=== PATIENT | male | born 1970 | race Caucasian/White ===

== ENCOUNTER 2019-12-18 06:58 | Day surgery (SDC) | payer OTHER ==
[~2019-12-18 06:58] MED LIST: Lactated Ringers 1,000 ML IV SCH; Lidocaine 1%/Sod Bicarbonate in NS 8.4% 1 ML Syringe IDERM PRN; Sodium Chloride 0.9% 10 ML Syringe FLUSH PRN
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
[2019-12-18] MEDS ORDERED: Propofol 200 MG/20 ML SDV ONE ×3 (08:38→10:02)
[2019-12-18] MEDS ORDERED: Lidocaine 1% 4 ML ONE ×3 (08:38→10:03)
[2019-12-18] MEDS ORDERED: fentaNYL 100 MCG/2 ML SDV ONE ×2 (08:38→09:54)
--- NOTE | 2019-12-18 10:38 | PCM.PRNOTE ---
- Free Text/Narrative Note: Date: 12/18/2019 Procedure: screening colonoscopy Endoscopist: Dann Perez MD Findings: Very challenging to navigate sigmoid colon. Ileocecal valve visualized. Prep was excellent. Several polyps identified; none appeared worrisome for malignancy. Detailed Report: The patient was taken to the endoscopy suite and placed in left lateral decubitus position. Time out was performed and monitored anesthesia care was initiated. The anus appeared normal. Digital rectal exam was unremarkable; hypertrophied anal papilla appreciated, prostate felt normal. The lubricated colonoscope was then inserted and advanced all the way to the cecum. Navigating the sigmoid colon was very challenging and took a while. The ileocecal valve was visualized. The prep was noted to be excellent. On slow withdrawal of the scope, mucosal surfaces were carefully inspected. Several polyps were identified along the sigmoid colon and rectum, and were biopsied either with forceps or snare and the bases cauterized. A total of six specimens were obtained. No significant diverticular or hemorrhoidal disease was appreciated. The patient tolerated the procedure well. Dann Perez MD General Surgery
--- NOTE | 2019-12-18 10:48 | PCM48HPAN ---
Post Anesthesia Note - EVALUATION WITHIN 48HRS OF ANESTHETIC Vital Signs in Normal Range: Yes Patient Participated in Evaluation: Yes Respiratory Function Stable: Yes Airway Patent: Yes Cardiovascular Function Stable: Yes Hydration Status Stable: Yes Pain Control Satisfactory: Yes Nausea and Vomiting Control Satisfactory: Yes Mental Status Recovered: Yes Vital Signs: Last Vital Signs Temp 36.7 C 12/18/19 07:10 Pulse 86 12/18/19 07:10 Resp 16 12/18/19 07:10 BP 140/87 12/18/19 07:10 Pulse Ox 96 12/18/19 07:10 - COMMENTS/OBSERVATIONS Free Text/Narrative:: 1034 127/97 74 16 92% 97.1F
[2019-12-18] MEDS ORDERED: Simethicone 80 MG Tab.Chew PO SCH (11:26)
[2019-12-18 12:29] VITALS: BP 137/88; PULSE 74
--- NOTE | 2019-12-18 13:07 | CR ---
Abdomen: Upright view of the abdomen was obtained. Increased gas within small bowel and colon is seen. Findings compatible with recent colonoscopy. No free air is seen. Thick parenchymal density noted within the left lung base most likely due to atelectasis unless patient has infectious symptoms. Bony structures are unremarkable. Impression: 1. Increased gas within small bowel and colon compatible with recent colonoscopy. 2. Increased density within left lung base most likely due to thick area of atelectasis unless patient has infectious symptoms of aspiration pneumonia or regular pneumonia. Diagnostic code #3 Study was dictated in [place] Standard Time
== END 2019-12-18 13:55 | disposition home or self-care (01) ==
LOC: JD.SDS 06:58
PROVIDERS: ATTEND Surgery
DX: Z12.11 Encounter for screening for malignant neoplasm of colon (principal); D12.5 Benign neoplasm of sigmoid colon; K62.1 Rectal polyp; K21.9 Gastro-esophageal reflux disease without esophagitis; E78.5 Hyperlipidemia, unspecified; G47.33 Obstructive sleep apnea (adult) (pediatric); Z99.89 Dependence on other enabling machines and devices; Z79.899 Other long term (current) drug therapy
CPT/HCPCS: 45380; 45385; 74018; A9270; J2001; J2704; J3010; J7120; 00812; 88305

== ENCOUNTER 2020-07-18 14:38 | Emergency (ER) | payer OTHER ==
[2020-07-18] MEDS ORDERED: Sodium Chloride 0.9% 10 ML Syringe FLUSH PRN (15:09)
[2020-07-18] MEDS ORDERED: Alum Hydrox/Mag Hydrox/Simeth 30 ML, Lidocaine 2% 15 ML PO ONE ×2 (15:09)
[2020-07-18] MEDS ORDERED: Aspirin 81 MG Tab.Chew PO ONE (15:09)
--- NOTE | 2020-07-18 15:16 | EDM.PDOC ---
ED HPI GENERAL MEDICAL PROBLEM - General Chief Complaint: Chest Pain Stated Complaint: ABNORMAL EKG Time Seen by Provider: 07/18/20 14:54 Source of Information: Reports: Patient History Limitations: Reports: No Limitations - History of Present Illness INITIAL COMMENTS - FREE TEXT/NARRATIVE: Patient is a 50-year-old male with history of acid reflux and hypercholesterolemia. Presents to the ED today after a 2-day history of burning-like sensation to the lower sternal border. Pain is rated at 4 out of 10 wax and wanes in intensity with no worsening with palpation or exertion. There is no shortness of breath, diaphoresis, fever chills, cough, or abdominal pain associated with this. He does have some pain to the mid thoracic back which is unusual for the patient. No dizziness or sense of acid. He was seen today by his PCP for his annual physical. Patient suspects this is more likely acid reflux but was sent to the ED for further evaluation. There is a family history of first-degree relative with heart disease. His dad had onset of heart disease at the age of 40. Patient continues to smoke approximate 1 pack/day for 30 years. There is no history of diabetes, hypertension, PE/DVT, or pancreatitis. Patient denies any dark tarry stools, bloody stools, excessive ibuprofen use, diarrhea, constipation, and/or any additional complaints. Upper Mid-Sternal Chest Pain Score (Numeric/FACES): 6 - Related Data Allergies Allergy/AdvReac Type Severity Reaction Status Date / Time No Known Allergies Allergy Verified 07/18/20 14:49 Home Meds: Home Meds Cholecalciferol (Vitamin D3) [Vitamin D3] 1,000 unit PO DAILY 12/18/19 [History] Fish Oil/[place]-3 Fatty Acids [Fish Oil 1,000 MG] 2 cap PO DAILY 12/18/19 [History] Ibuprofen 600 mg PO ASDIRECTED PRN 12/18/19 [History] Nortriptyline 50 mg PO BEDTIME 12/18/19 [History] Omeprazole Magnesium [Prilosec Otc] 20 mg PO BID 12/18/19 [History] atorvaSTATin [Lipitor] 40 mg PO DAILY 12/18/19 [History] Past Medical History Cardiovascular History: Reports: High Cholesterol Respiratory History: Reports: Sleep Apnea Gastrointestinal History: Reports: GERD Musculoskeletal History: Reports: Back Pain, Chronic Psychiatric History: Reports: PTSD, Other (See Below) Other Psychiatric History: INSOMNIA Dermatologic History: Reports: Eczema - Past Surgical History Musculoskeletal Surgical History: Reports: Arthroscopic Knee Social & Family History - Tobacco Use Smoking Status *Q: Current Every Day Smoker Years of Tobacco use: 30 Packs/Tins Daily: 0.5 - Caffeine Use Caffeine Use: Reports: None - Recreational Drug Use Recreational Drug Use: No ED ROS GENERAL - Review of Systems Review Of Systems: Comprehensive ROS is negative, except as noted in HPI. ED EXAM, GENERAL - Physical Exam Exam: See Below Exam Limited By: No Limitations General Appearance: Alert, WD/WN, No Apparent Distress Eye Exam: Bilateral Eye: Normal Inspection Ears: Hearing Grossly Normal Nose: Normal Inspection Throat/Mouth: Normal Inspection, Normal Oropharynx, Normal Voice, No Airway Compromise Head: Atraumatic, Normocephalic Neck: Normal Inspection, Supple Respiratory/Chest: No Respiratory Distress, Lungs Clear, Normal Breath Sounds, No Accessory Muscle Use, Chest Non-Tender Cardiovascular: Normal Peripheral Pulses, Regular Rate, Rhythm, No Murmur Peripheral Pulses: 2+: Radial (L), Radial (R), Posterior Tibial (L), Posterior Tibial (R) GI/Abdominal: Normal Bowel Sounds, Soft, Non-Tender, No Organomegaly, No Distention Back Exam: Normal Inspection, Full Range of Motion. No: CVA Tenderness (L), CVA Tenderness (R), Decreased Range of Motion, Paraspinal Tenderness, Vertebral Tenderness Extremities: Normal Inspection, Normal Range of Motion, Non-Tender, No Pedal Edema Neurological: Alert, Oriented, CN II-XII Intact, Normal Cognition, No Motor/Sensory Deficits Psychiatric: Normal Affect, Normal Mood Skin Exam: Warm, Dry, Intact, Normal Color Course - Vital Signs Last Recorded V/S: Last Vital Signs Temp 98.3 F 07/18/20 14:45 Pulse 79 07/18/20 18:38 Resp 18 07/18/20 18:38 BP 132/77 07/18/20 18:38 Pulse Ox 97 07/18/20 18:38 - Orders/Labs/Meds Orders: Active Orders 24 hr Category Date Time Status Chest 1V Frontal [CR] Stat Exams 07/18/20 14:55 Taken Peripheral IV Insertion Adult [OM.PC] Routine Oth 07/18/20 15:09 Ordered EKG 12 Lead [EK] Stat Ther 07/18/20 15:49 Ordered Labs: Laboratory Tests 07/18/20 07/18/20 07/18/20 Range/Units 15:00 15:00 15:00 WBC 9.83 H (4.23-9.07) K/mm3 RBC 5.54 (4.63-6.08) M/mm3 Hgb 15.8 (13.7-17.5) gm/dl Hct 47.9 (40.1-51.0) % MCV 86.5 (79.0-92.2) fl MCH 28.5 (25.7-32.2) pg MCHC 33.0 (32.2-35.5) g/dl RDW Std Deviation 47.1 H (35.1-43.9) fL Plt Count 272 (163-337) K/mm3 MPV 11.0 (9.4-12.3) fl Neutrophils % (Manual) 52 (40-60) % Band Neutrophils % 1 (0-10) % Lymphocytes % (Manual) 31 (20-40) % Atypical Lymphs % 4 % Monocytes % (Manual) 10 (2-10) % Eosinophils % (Manual) 2 (0.8-7.0) % Basophils % (Manual) 0 L (0.2-1.2) Platelet Estimate Adequate RBC Morph Comment Normal PT 10.5 (9.7-11.7) SECONDS INR 0.98 APTT 28 (22-31) SECONDS Sodium 139 (136-145) mEq/L Potassium 3.9 (3.5-5.1) mEq/L Chloride 101 (98-107) mEq/L Carbon Dioxide 29 (21-32) mEq/L Anion Gap 12.9 (5-15) BUN 17 (7-18) mg/dL Creatinine 1.3 (0.7-1.3) mg/dL Est Cr Clr Drug Dosing 71.60 mL/min Estimated GFR (MDRD) 58 (>60) mL/min BUN/Creatinine Ratio 13.1 L (14-18) Glucose 90 (74-106) mg/dL Calcium 9.2 (8.5-10.1) mg/dL Total Bilirubin 0.7 (0.2-1.0) mg/dL AST 39 H (15-37) U/L ALT 56 (16-63) U/L Alkaline Phosphatase 51 (46-116) U/L Troponin I (0.00-0.056) ng/mL C-Reactive Protein 0.8 (<1.0) mg/dL Total Protein 8.1 (6.4-8.2) g/dl Albumin 4.3 (3.4-5.0) g/dl Globulin 3.8 gm/dL Albumin/Globulin Ratio 1.1 (1-2) Lipase (73-393) U/L SARS-CoV-2 RNA (SHERLYN) (NEGATIVE) 07/18/20 07/18/20 Range/Units 15:00 15:59 WBC (4.23-9.07) K/mm3 RBC (4.63-6.08) M/mm3 Hgb (13.7-17.5) gm/dl Hct (40.1-51.0) % MCV (79.0-92.2) fl MCH (25.7-32.2) pg MCHC (32.2-35.5) g/dl RDW Std Deviation (35.1-43.9) fL Plt Count (163-337) K/mm3 MPV (9.4-12.3) fl Neutrophils % (Manual) (40-60) % Band Neutrophils % (0-10) % Lymphocytes % (Manual) (20-40) % Atypical Lymphs % % Monocytes % (Manual) (2-10) % Eosinophils % (Manual) (0.8-7.0) % Basophils % (Manual) (0.2-1.2) Platelet Estimate RBC Morph Comment PT (9.7-11.7) SECONDS INR APTT (22-31) SECONDS Sodium (136-145) mEq/L Potassium (3.5-5.1) mEq/L Chloride (98-107) mEq/L Carbon Dioxide (21-32) mEq/L Anion Gap (5-15) BUN (7-18) mg/dL Creatinine (0.7-1.3) mg/dL Est Cr Clr Drug Dosing mL/min Estimated GFR (MDRD) (>60) mL/min BUN/Creatinine Ratio (14-18) Glucose (74-106) mg/dL Calcium (8.5-10.1) mg/dL Total Bilirubin (0.2-1.0) mg/dL AST (15-37) U/L ALT (16-63) U/L Alkaline Phosphatase (46-116) U/L Troponin I 2.813 H* (0.00-0.056) ng/mL C-Reactive Protein (<1.0) mg/dL Total Protein (6.4-8.2) g/dl Albumin (3.4-5.0) g/dl Globulin gm/dL Albumin/Globulin Ratio (1-2) Lipase 127 (73-393) U/L SARS-CoV-2 RNA (SHERLYN) Negative (NEGATIVE) Meds: Medications Discontinued Medications Generic Name Dose Route Start Last Admin Trade Name Freq PRN Reason Stop Dose Admin Aspirin 324 mg 07/18/20 15:09 07/18/20 15:17 Aspirin PO 07/18/20 15:10 324 mg ONETIME ONE Administration Al Hydroxide/Mg Hydroxide 30 0 ml 07/18/20 15:09 07/18/20 15:17 ml/ Lidocaine HCl 15 ml PO 07/18/20 15:10 45 ml ONETIME ONE Administration Fentanyl 50 mcg 07/18/20 17:06 07/18/20 18:34 Sublimaze IVPUSH 07/18/20 17:07 Not Given ONETIME ONE Heparin Sodium (Porcine) 4,000 units 07/18/20 16:00 07/18/20 16:14 Heparin Sodium IVPUSH 07/18/20 16:01 4,000 units ONETIME ONE Administration Sodium Chloride Confirm 07/18/20 15:51 07/18/20 16:04 Normal Saline Administered 07/18/20 15:52 Not Given Dose 1,000 mls @ as directed .ROUTE .STK-MED ONE Sodium Chloride 1,000 mls @ 125 mls/hr 07/18/20 16:00 07/18/20 15:50 Normal Saline IV 125 mls/hr ASDIRECTED SAMANTHA Administration Heparin Sodium/Dextrose 25,000 units in 500 mls @ 25.038 mls/hr 07/18/20 16:00 07/18/20 16:14 Heparin 25,000 Units In D5w 500 Ml IV 9.59 units/kg/hr TITRATE SAMANTHA 20 mls/hr Administration Protocol 12 UNITS/KG/HR Nitroglycerin/Dextrose 25 mg in 250 mls @ 3 mls/hr 07/18/20 17:15 07/18/20 17:34 Nitroglycerin 25 Mg/D5w 250 Ml IV 5 mcg/min TITRATE SAMANTHA 3 mls/hr Administration Protocol 5 MCG/MIN Nitroglycerin 0.4 mg 07/18/20 15:45 07/18/20 16:03 Nitrostat SL 07/18/20 15:46 0.4 mg ONETIME ONE Administration Nitroglycerin 0.4 mg 07/18/20 16:44 07/18/20 16:45 Nitrostat SL 07/18/20 16:45 0.4 mg ONETIME ONE Administration Ondansetron HCl 4 mg 07/18/20 17:06 07/18/20 17:32 Zofran IVPUSH 07/18/20 17:07 4 mg ONETIME ONE Administration Sodium Chloride 10 ml 07/18/20 15:09 07/18/20 15:17 Saline Flush FLUSH 10 ml ASDIRECTED PRN Administration Keep Vein Open - Re-Assessments/Exams Free Text/Narrative Re-Assessment/Exam: IV Established. Ordered ASA 324 mg x 1. GI cocktail. Lab studies to be obtained include a CBC, can 14, coag studies, lipase, troponin, CRP and also chest x-ray 1 view. EKG sinus rhythm with left axis deviation. T wave inversions in leads III and aVF. Very slight ST depression in leads III and aVF. Suggesting ischemia. Suspect enzymes should be positive for patient's been having had consistent pain for 2 days. 1543 opponent has come back at 2.813. She had no relief with the GI cocktail. Back pain has resolved. Blood pressure 127/98, heart rate 76, O2 sats 97% on room air, respiratory rate 16. Ordered normal saline 125 mL/h with nitro sublingual x1. Second EKG will be obtained. Second EKG sinus rhythm with no acute ST changes. No significant changes from previous EKG. Ordered heparin 4000 units IV push with heparin drip. 1642 Per nursing patient stated pain 3/10 after nitro. Vitals remain stable. [address] Marshall he has requested obtaining right-sided twelve-lead and also posterior. If patient continues to have pain after nitro he may need to be cath. In addition agreed after administration of nitro if no relief start nitro drip and titrate up. He will need to be triaged in the ED. Discussed patient with Dr. Villagomez ER physician and he has accepted the patient. Per Dr. Lopez the right-sided twelve-lead was completely normal. In addition the posterior leads were within normal limits as well. 1718 Nursing staff states patient's pain is a 2 out of 10. I had already ordered a fentanyl 50 mcg and nitro drip. We are unable to arrange ground transport. [place] fix wing is available. We will have the patient transferred via fixed wing to [facility]. Ordered fentanyl 50 mcg IV and nitro drip. Prior to discharge patient's chest discomfort was still a 2 out of 10 on nitro drip. Vital signs remained stable. Departure - Departure Time of Disposition: 17:10 Disposition: DC/Tfer to Acute Hospital 02 Reason for Transfer *Q: Other (PCI would be indicated if pain persists.) Condition: Fair Clinical Impression: NSTEMI (non-ST elevated myocardial infarction) Referrals: Jeanette Bray MD [Primary Care Provider] - Sepsis Event Note (ED) - Evaluation Sepsis Screening Result: No Definite Risk - My Orders Last 24 Hours: My Active Orders 07/18/20 14:55 Chest 1V Frontal [CR] Stat 07/18/20 15:09 Peripheral IV Insertion Adult [OM.PC] Routine 07/18/20 15:49 EKG 12 Lead [EK] Stat - Assessment/Plan Last 24 Hours: My Active Orders 07/18/20 14:55 Chest 1V Frontal [CR] Stat 07/18/20 15:09 Peripheral IV Insertion Adult [OM.PC] Routine 07/18/20 15:49 EKG 12 Lead [EK] Stat
[2020-07-18] MEDS ORDERED: Nitroglycerin 0.4 MG Tab.SL SL ONE ×2 (15:45→16:44)
[2020-07-18] MEDS ORDERED: Sodium Chloride 0.9% 1,000 ML ONE (15:51)
[2020-07-18] MEDS ORDERED: Heparin Sodium 5,000 Units/ML Vial IVPUSH ONE (16:00)
[2020-07-18] MEDS ORDERED: Heparin Sodium/D5W 25,000 UNITS/500 ML BAG IV SCH (16:00)
[2020-07-18] MEDS ORDERED: Sodium Chloride 0.9% 1,000 ML IV SCH (16:00)
[2020-07-18] MEDS ORDERED: Ondansetron 4 MG/2 ML SDV IVPUSH ONE (17:06)
[2020-07-18] MEDS ORDERED: fentaNYL 100 MCG/2 ML SDV IVPUSH ONE (17:06)
[2020-07-18] MEDS ORDERED: Nitroglycerin/D5W 25 MG/250 ML BOTTLE IV SCH (17:15)
[2020-07-18 18:44] VITALS: BP 132/77; PULSE 79
== END 2020-07-18 18:04 ==
LOC: JD.ED 14:38
DX: I21.4 Non-ST elevation (NSTEMI) myocardial infarction (principal); K21.9 Gastro-esophageal reflux disease without esophagitis; F17.210 Nicotine dependence, cigarettes, uncomplicated; E78.00 Pure hypercholesterolemia, unspecified; Z20.828 Contact with and (suspected) exposure to other viral communicable diseases; Z79.899 Other long term (current) drug therapy
CPT/HCPCS: 36415; 71045; 80053; 83690; 84484; 85007; 85027; 85610; 85730; 86140; 87635; 93005; 96365; 96366; 96368; 96375; 99285; A9270; J1644; J2405; J3490; J7030; 93010; U0002

== ENCOUNTER 2021-04-18 09:19 | Emergency (ER) | payer OTHER ==
[2021-04-18 09:30] VITALS: BP 142/83; PULSE 61
[2021-04-18] MEDS ORDERED: Sodium Chloride 0.9% 10 ML Syringe FLUSH PRN (10:02)
[2021-04-18] MEDS ORDERED: Aspirin 81 MG Tab.Chew PO ONE (10:02)
--- NOTE | 2021-04-18 11:21 | EDM.PDOC ---
ED HPI GENERAL MEDICAL PROBLEM - General Chief Complaint: Chest Pain Stated Complaint: CHEST PAIN Time Seen by Provider: 04/18/21 09:43 Source of Information: Reports: Patient, RN Notes Reviewed - History of Present Illness INITIAL COMMENTS - FREE TEXT/NARRATIVE: The patient presents with chest pain. This started yesterday. He said it was on the left and now it has gone to the right. He has no fever, chills, cough, shortness of breath, abdominal pain, nausea or vomiting. He has a history of AR with stents. He does not smoke. Onset: Gradual Duration: Day(s): (Yesterday) Location: Reports: Chest Severity: Mild Improves with: Reports: None Worsens with: Reports: None Associated Symptoms: Reports: Chest Pain. Denies: Cough, Fever/Chills, Headaches, Nausea/Vomiting, Shortness of Breath Right Chest Pain Score (Numeric/FACES): 6 - Related Data Allergies Allergy/AdvReac Type Severity Reaction Status Date / Time No Known Allergies Allergy Verified 04/18/21 09:30 Home Meds: Home Meds Cholecalciferol (Vitamin D3) [Vitamin D3] 2,000 unit PO DAILY 12/18/19 [History] Fish Oil/[place]-3 Fatty Acids [Fish Oil 1,000 MG] 2 cap PO DAILY 12/18/19 [History] Ibuprofen 800 mg PO TID PRN 12/18/19 [History] atorvaSTATin [Lipitor] 40 mg PO BEDTIME 12/18/19 [History] Aspirin [Aspirin EC] 81 mg PO DAILY 04/18/21 [History] Clopidogrel Bisulfate [Plavix] 75 mg PO DAILY 04/18/21 [History] Escitalopram Oxalate [Lexapro] 20 mg PO DAILY 04/18/21 [History] Gabapentin [Neurontin] 300 mg PO BID 04/18/21 [History] Nicotine Polacrilex [Nicotine Gum] 4 mg BC QID PRN 04/18/21 [History] Nitroglycerin 0.4 mg SL ASDIRECTED PRN 04/18/21 [History] Pantoprazole Sodium [Protonix] 40 mg PO DAILY 04/18/21 [History] traZODone 25 mg PO BEDTIME 04/18/21 [History] Past Medical History HEENT History: Reports: Impaired Vision Cardiovascular History: Reports: High Cholesterol, [place] Respiratory History: Reports: Sleep Apnea Gastrointestinal History: Reports: GERD Musculoskeletal History: Reports: Back Pain, Chronic Psychiatric History: Reports: PTSD, Other (See Below) Other Psychiatric History: INSOMNIA Hematologic History: Reports: Anticoagulation Therapy Dermatologic History: Reports: Eczema - Past Surgical History Cardiovascular Surgical History: Reports: Coronary Artery Stent Musculoskeletal Surgical History: Reports: Arthroscopic Knee Social & Family History - Tobacco Use Tobacco Use Status *Q: Current Every Day Tobacco User Years of Tobacco use: 30 Packs/Tins Daily: 0.5 - Caffeine Use Caffeine Use: Reports: Soda - Recreational Drug Use Recreational Drug Use: No ED ROS GENERAL - Review of Systems Review Of Systems: See Below Constitutional: Reports: No Symptoms HEENT: Reports: No Symptoms Respiratory: Reports: No Symptoms Cardiovascular: Reports: Chest Pain Endocrine: Reports: No Symptoms GI/Abdominal: Reports: No Symptoms : Reports: No Symptoms Musculoskeletal: Reports: No Symptoms ED EXAM, GENERAL - Physical Exam Exam: See Below Exam Limited By: No Limitations General Appearance: Alert, No Apparent Distress Ears: Normal External Exam Nose: Normal Inspection Head: Atraumatic, Normocephalic Neck: Normal Inspection Respiratory/Chest: No Respiratory Distress, Lungs Clear, Normal Breath Sounds Cardiovascular: Regular Rate, Rhythm, No Edema, No Murmur GI/Abdominal: Soft, Non-Tender, No Organomegaly, No Mass Extremities: Normal Inspection Neurological: Alert, Oriented, No Motor/Sensory Deficits #1 Interpretation EKG Date: 04/18/21 Time: 09:27 Rhythm: Other (sinus bradycardia) Rate (Beats/Min): 57 [place]: Normal P-Wave: Present QRS: Normal ST-T: Normal QT: Normal Course - Vital Signs Last Recorded V/S: Last Vital Signs Temp 96.9 F 04/18/21 09:27 Pulse 61 04/18/21 09:27 Resp 16 04/18/21 09:27 BP 142/83 H 04/18/21 09:27 Pulse Ox 97 04/18/21 09:27 - Orders/Labs/Meds Orders: Active Orders 24 hr Category Date Time Status Cardiac Monitoring [RC] . DIRECTED Care 04/18/21 10:02 Active EKG 12 Lead [EKG Documentation Completion] [RC] ROUTINE Care 04/18/21 09:30 Active Peripheral IV Care [RC] . DIRECTED Care 04/18/21 10:02 Active Chest 1V Frontal [CR] Stat Exams 04/18/21 10:02 Taken Sodium Chloride 0.9% [Saline Flush] Med 04/18/21 10:02 Active 10 ml FLUSH ASDIRECTED PRN Peripheral IV Insertion Adult [OM.PC] Stat Oth 04/18/21 10:02 Ordered Medication Orders Sodium Chloride (Sodium Chloride 0.9% 10 Ml Syringe) 10 ml FLUSH ASDIRECTED PRN PRN Reason: Keep Vein Open Last Admin: 04/18/21 10:07 Dose: 10 ml Documented by: [place] Labs: Laboratory Tests 04/18/21 04/18/21 Range/Units 09:30 09:30 WBC 8.41 (4.23-9.07) K/mm3 RBC 5.29 (4.63-6.08) M/mm3 Hgb 15.2 (13.7-17.5) gm/dl Hct 45.3 (40.1-51.0) % MCV 85.6 (79.0-92.2) fl MCH 28.7 (25.7-32.2) pg MCHC 33.6 (32.2-35.5) g/dl RDW Std Deviation 47.1 H (35.1-43.9) fL Plt Count 239 (163-337) K/mm3 MPV 11.6 (9.4-12.3) fl Neut % (Auto) 59.0 (34.0-67.9) % Lymph % (Auto) 30.9 (21.8-53.1) % [place] % (Auto) 8.2 (5.3-12.2) % Eos % (Auto) 1.2 (0.8-7.0) Baso % (Auto) 0.6 (0.1-1.2) % Neut # (Auto) 4.96 (1.78-5.38) K/mm3 Lymph # (Auto) 2.60 (1.32-3.57) K/mm3 [place] # (Auto) 0.69 (0.30-0.82) K/mm3 Eos # (Auto) 0.10 (0.04-0.54) K/mm3 Baso # (Auto) 0.05 (0.01-0.08) K/mm3 Sodium 140 (136-145) mEq/L Potassium 3.7 (3.5-5.1) mEq/L Chloride 104 (98-107) mEq/L Carbon Dioxide 23 (21-32) mEq/L Anion Gap 16.7 H (5-15) BUN 21 H (7-18) mg/dL Creatinine 1.3 (0.7-1.3) mg/dL Est Cr Clr Drug Dosing 71.60 mL/min Estimated GFR (MDRD) 58 (>60) mL/min BUN/Creatinine Ratio 16.2 (14-18) Glucose 106 H (70-99) mg/dL Calcium 9.0 (8.5-10.1) mg/dL Total Bilirubin 0.6 (0.2-1.0) mg/dL AST 25 (15-37) U/L ALT 29 (16-63) U/L Alkaline Phosphatase 56 (46-116) U/L Troponin I < 0.017 (0.00-0.056) ng/mL Total Protein 7.6 (6.4-8.2) g/dl Albumin 4.2 (3.4-5.0) g/dl Globulin 3.4 gm/dL Albumin/Globulin Ratio 1.2 (1-2) Meds: Medications Generic Name Dose Route Start Last Admin Trade Name Freq PRN Reason Stop Dose Admin Sodium Chloride 10 ml 04/18/21 10:02 04/18/21 10:07 Sodium Chloride 0.9% 10 Ml Syringe FLUSH 10 ml ASDIRECTED PRN Administration Keep Vein Open Discontinued Medications Generic Name Dose Route Start Last Admin Trade Name Freq PRN Reason Stop Dose Admin Aspirin 324 mg 04/18/21 10:02 04/18/21 10:10 Aspirin 81 Mg Tab.Chew PO 04/18/21 10:03 324 mg ONETIME ONE Administration - Re-Assessments/Exams Free Text/Narrative Re-Assessment/Exam: 04/18/21 11:19 I ordered an IV saline lock, EKG, CXR, aspirin and labs. His EKG shows a sinus bradycardia with no acute changes. His CBC and CMP look good. His troponin is negative. This appears to be chest wall pain. I will discharge the patient home. Departure - Departure Time of Disposition: 11:20 Disposition: Home, Self-Care 01 Condition: Good Clinical Impression: Atypical chest pain Referrals: Jeanette Bray MD [Primary Care Provider] - 1 Week Additional Instructions: Drink plenty of fluids. Take tylenol or motrin as needed for pain. Follow up with your doctor within a week. Please return if you are worse. Sepsis Event Note (ED) - Evaluation Sepsis Screening Result: No Definite Risk - Focused Exam Vital Signs: Vital Signs Temp Pulse Resp BP Pulse Ox 04/18/21 09:27 96.9 F 61 16 142/83 H 97 - My Orders Last 24 Hours: My Active Orders 04/18/21 09:30 EKG 12 Lead [EKG Documentation Completion] [RC] ROUTINE 04/18/21 10:02 Cardiac Monitoring [RC] . DIRECTED Peripheral IV Care [RC] . DIRECTED Chest 1V Frontal [CR] Stat Sodium Chloride 0.9% [Saline Flush] 10 ml FLUSH ASDIRECTED PRN Peripheral IV Insertion Adult [OM.PC] Stat - Assessment/Plan Last 24 Hours: My Active Orders 04/18/21 09:30 EKG 12 Lead [EKG Documentation Completion] [RC] ROUTINE 04/18/21 10:02 Cardiac Monitoring [RC] . DIRECTED Peripheral IV Care [RC] . DIRECTED Chest 1V Frontal [CR] Stat Sodium Chloride 0.9% [Saline Flush] 10 ml FLUSH ASDIRECTED PRN Peripheral IV Insertion Adult [OM.PC] Stat
--- NOTE | 2021-04-19 11:45 | CR ---
Chest: Portable view of the chest was obtained. Comparison: No prior chest imaging is available. Heart size and mediastinum are normal. Lungs are clear with no acute parenchymal change. Bony structures show no acute osseous abnormality. Impression: 1. Nothing acute is seen on portable chest x-ray. Diagnostic code #1
== END 2021-04-18 11:35 | disposition home or self-care (01) ==
LOC: JD.ED 09:19
DX: R07.89 Other chest pain (principal); E78.00 Pure hypercholesterolemia, unspecified; I25.2 Old myocardial infarction; K21.9 Gastro-esophageal reflux disease without esophagitis; Z79.82 Long term (current) use of aspirin; Z79.02 Long term (current) use of antithrombotics/antiplatelets; Z79.899 Other long term (current) drug therapy
CPT/HCPCS: 36415; 71045; 80053; 84484; 85025; 93005; 99285; A9270; 93010; 99283

== ENCOUNTER 2021-07-18 14:19 | Emergency (ER) | payer OTHER ==
[2021-07-18 16:08] VITALS: BP 137/84; PULSE 57
[2021-07-18] MEDS ORDERED: Diphtheria,Pertussis(Acell),Tetanus Vaccine 0.5 ML Syringe IM ONE (16:08)
--- NOTE | 2021-07-18 16:14 | EDM.PDOC ---
ED HPI GENERAL MEDICAL PROBLEM - General Chief Complaint: Bite:Animal, Insect Stated Complaint: DOG BITE RIGHT LEG Time Seen by Provider: 07/18/21 15:59 Source of Information: Reports: Patient, RN Notes Reviewed History Limitations: Reports: No Limitations - History of Present Illness INITIAL COMMENTS - FREE TEXT/NARRATIVE: Patient is a 51-year-old male who presents to the ER for evaluation of a dog bite on his right lower posterior calf. 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 He has 1 small superficial abrasion, and one smaller puncture wound. Bleeding is controlled at this time. This incident happened at around 10:30 AM. Patient is not sure if the dog was up-to-date on vaccinations but a police report has been filed, and the police have been in contact with the owners of the dog. Patient is also not up-to-date on his tetanus vaccine. Patient denies any other sick-like symptoms, fever/chills, cough/shortness of breath, nausea/vomiting/diarrhea. Right Lower Posterior Leg Pain Score (Numeric/FACES): 1 - Related Data Allergies Allergy/AdvReac Type Severity Reaction Status Date / Time No Known Allergies Allergy Verified 07/18/21 16:08 Home Meds: Home Meds Cholecalciferol (Vitamin D3) [Vitamin D3] 2,000 unit PO DAILY 12/18/19 [History] Fish Oil/[place]-3 Fatty Acids [Fish Oil 1,000 MG] 2 cap PO DAILY 12/18/19 [History] Ibuprofen 800 mg PO TID PRN 12/18/19 [History] atorvaSTATin [Lipitor] 40 mg PO BEDTIME 12/18/19 [History] Aspirin [Aspirin EC] 81 mg PO DAILY 04/18/21 [History] Clopidogrel Bisulfate [Plavix] 75 mg PO DAILY 04/18/21 [History] Escitalopram Oxalate [Lexapro] 20 mg PO DAILY 04/18/21 [History] Gabapentin [Neurontin] 300 mg PO BID 04/18/21 [History] Nicotine Polacrilex [Nicotine Gum] 4 mg BC QID PRN 04/18/21 [History] Nitroglycerin 0.4 mg SL ASDIRECTED PRN 04/18/21 [History] Pantoprazole Sodium [Protonix] 40 mg PO DAILY 04/18/21 [History] traZODone 25 mg PO BEDTIME 04/18/21 [History] Amoxicillin/Clavulanate K [Augmentin 875-125 MG] 1 tab PO BID 5 Days #10 tablet 07/18/21 [Rx] Past Medical History HEENT History: Reports: Impaired Vision Cardiovascular History: Reports: High Cholesterol, [place] Respiratory History: Reports: Sleep Apnea Gastrointestinal History: Reports: GERD Musculoskeletal History: Reports: Back Pain, Chronic Psychiatric History: Reports: PTSD, Other (See Below) Other Psychiatric History: INSOMNIA Hematologic History: Reports: Anticoagulation Therapy Dermatologic History: Reports: Eczema - Past Surgical History Cardiovascular Surgical History: Reports: Coronary Artery Stent Musculoskeletal Surgical History: Reports: Arthroscopic Knee Social & Family History - Caffeine Use Caffeine Use: Reports: Soda ED ROS GENERAL - Review of Systems Review Of Systems: Comprehensive ROS is negative, except as noted in HPI. ED EXAM, ANIMAL BITE - Physical Exam Exam: See Below Exam Limited By: No Limitations General Appearance: Alert, WD/WN, No Apparent Distress Respiratory/Chest: No Respiratory Distress, Lungs Clear, Normal Breath Sounds, No Accessory Muscle Use, Chest Non-Tender Cardiovascular: Normal Peripheral Pulses, Regular Rate, Rhythm, No Edema Extremities: Normal Range of Motion, Normal Capillary Refill Neurological: Alert, Oriented, Normal Cognition, No Motor/Sensory Deficits Psychiatric: Normal Affect, Normal Mood Skin Exam: Normal Color, Warm/Dry, Other (Small superficial skin abrasion to the posterior right calf. Also 1 small puncture wound to the right posterior calf, bleeding is under control.) Course - Vital Signs Last Recorded V/S: Last Vital Signs Temp 99 F 07/18/21 15:57 Pulse 57 L 07/18/21 15:57 Resp 16 07/18/21 15:57 BP 137/84 07/18/21 15:57 Pulse Ox 99 07/18/21 15:57 - Orders/Labs/Meds Orders: Active Orders 24 hr Category Date Time Status Vaccine to be Administered/Admin Charge [RC] ASDIRECTED Care 07/18/21 16:08 Ordered Diphth,Pertuss(Acell),Tet Vac [Boostrix] Med 07/18/21 16:08 Once 0.5 ml IM .ONCE ONE Medication Orders Diphtheria/Tetanus/Acell Pertussis (Diphtheria,Pertussis(Acell),Tetanus Vaccine 0.5 Ml Syringe) 0.5 ml IM .ONCE ONE Stop: 07/18/21 16:09 Meds: Medications Generic Name Dose Route Start Last Admin Trade Name Willie PRN Reason Stop Dose Admin Diphtheria/Tetanus/Acell Pertussis 0.5 ml 07/18/21 16:08 Diphtheria,Pertussis(Acell),Tetanus Vaccine 0.5 Ml Syringe IM 07/18/21 16:09 .ONCE ONE - Re-Assessments/Exams Free Text/Narrative Re-Assessment/Exam: 07/18/21 16:13 Patient presents to the ER for his dog bite on his right posterior calf. We will update his tetanus at today's visit. The wound will be cleansed with some soap and water, and then bandaged with some gauze and Coban. He will keep in contact with police officers to see about rabies prophylaxis however suspicion is low at this time. He will be started on Augmentin Departure - Departure Time of Disposition: 16:14 Disposition: Home, Self-Care 01 Condition: Good Clinical Impression: Dog bite of right calf Qualifiers: Encounter type: initial encounter Qualified Code(s): S81.851A - Open bite, right lower leg, initial encounter; W54.0XXA - Bitten by dog, initial encounter - Discharge Information *PRESCRIPTION DRUG MONITORING PROGRAM REVIEWED*: No *COPY OF PRESCRIPTION DRUG MONITORING REPORT IN PATIENT LUCÍA: No Instructions: Animal Bite, Adult, [id number] Referrals: Jeanette Bray MD [Primary Care Provider] - Additional Instructions: You were evaluated at this ER visit for the dog bite on your right posterior calf. These wounds have been left open to drain, you can keep these covered with gauze and Coban for ongoing management. Keep the wounds clean and dry, you may cleanse with warm soapy water. You been started on an antibiotic, Augmentin 1 tablet 2 times a day for the next 5 days. This medication was electronically sent to the [place] pharmacy located in the [employer] grocery store. You may use Tylenol ibuprofen every 6 hours as needed for ongoing pain management. Do not be surprised if there is a little bit more bruising around the area over the next few days. Please coordinate with the transit police officer that took your report, to make sure that you do not need to start the rabies series. Your tetanus vaccine was updated at today's visit. This should be good for the next 10 years. Watch out for any signs of infection like redness, swelling, drainage from the wound sites, do not hesitate to return to the ER if symptoms should change or worsen. Sepsis Event Note (ED) - Evaluation Sepsis Screening Result: No Definite Risk - Focused Exam Vital Signs: Vital Signs Temp Pulse Resp BP Pulse Ox 07/18/21 15:57 99 F 57 L 16 137/84 99 - My Orders Last 24 Hours: My Active Orders 07/18/21 16:08 Vaccine to be Administered/Admin Charge [RC] ASDIRECTED Diphth,Pertuss(Acell),Tet Vac [Boostrix] 0.5 ml IM .ONCE ONE - Assessment/Plan Last 24 Hours: My Active Orders 07/18/21 16:08 Vaccine to be Administered/Admin Charge [RC] ASDIRECTED Diphth,Pertuss(Acell),Tet Vac [Boostrix] 0.5 ml IM .ONCE ONE
== END 2021-07-18 17:00 | disposition home or self-care (01) ==
LOC: JD.ED 14:19
DX: S81.851A Open bite, right lower leg, initial encounter (principal); I25.2 Old myocardial infarction; E78.00 Pure hypercholesterolemia, unspecified; K21.9 Gastro-esophageal reflux disease without esophagitis; Z23 Encounter for immunization; Z79.01 Long term (current) use of anticoagulants; Z79.82 Long term (current) use of aspirin; Z79.02 Long term (current) use of antithrombotics/antiplatelets; Z79.899 Other long term (current) drug therapy; W54.0XXA Bitten by dog, initial encounter; Y92.89 Other specified places as the place of occurrence of the external cause; Y99.0 Civilian activity done for income or pay
CPT/HCPCS: 90471; 90715; 99283

== ENCOUNTER 2022-09-14 08:49 | Day surgery (SDC) | payer OTHER ==
[~2022-09-14 08:49] MED LIST changes: +Sodium Chloride 0.9% 10 ML Syringe FLUSH SCH
[2022-09-14] MEDS ORDERED: fentaNYL 100 MCG/2 ML SDV ONE ×2 (09:34→09:46)
[2022-09-14] MEDS ORDERED: Propofol 200 MG/20 ML SDV ONE (09:35)
[2022-09-14] MEDS ORDERED: Lidocaine 1% 5 ML VIAL ONE (09:36)
[2022-09-14] MEDS ORDERED: Rocuronium 50 MG/5 ML Vial ONE (09:36)
[2022-09-14] MEDS ORDERED: Lidocaine 1% 50 ML MDV ONE (09:42)
[2022-09-14] MEDS ORDERED: Bupivacaine 0.5%/EPINEPHrine 1:200,000 50 ML MDV ONE (09:42)
[2022-09-14] MEDS ORDERED: fentaNYL 100 MCG/2 ML SDV IVPUSH PRN (10:13)
[2022-09-14] MEDS ORDERED: Ondansetron 4 MG/2 ML SDV IVPUSH PRN (10:13)
[2022-09-14] MEDS ORDERED: HYDROmorphone 0.5 MG/0.5 ML Syringe IVPUSH PRN (10:13)
[2022-09-14] MEDS ORDERED: ePHEDrine 50 MG/ML SDV ONE (11:32)
[2022-09-14] MEDS ORDERED: ceFAZolin 2 GM Vial ONE (11:34)
[2022-09-14] MEDS ORDERED: Ondansetron 4 MG/2 ML SDV ONE (12:39)
[2022-09-14] MEDS ORDERED: oxyCODONE 5 MG Tab PO ONE (13:55)
[2022-09-14 15:50] VITALS: BP 122/74; PULSE 78
== END 2022-09-14 15:45 | disposition home or self-care (01) ==
LOC: JD.SDS 08:49
PROVIDERS: ATTEND Surgery
DX: K40.20 Bilateral inguinal hernia, without obstruction or gangrene, not specified as recurrent (principal); K21.9 Gastro-esophageal reflux disease without esophagitis; G47.00 Insomnia, unspecified; F17.200 Nicotine dependence, unspecified, uncomplicated; E78.00 Pure hypercholesterolemia, unspecified; G47.30 Sleep apnea, unspecified; Z98.890 Other specified postprocedural states; Z79.82 Long term (current) use of aspirin; Z79.899 Other long term (current) drug therapy
CPT/HCPCS: 49650; A9270; C1727; C1781; J0690; J2001; J2405; J2704; J3010; J3490; J7120; 00840

== ENCOUNTER 2025-05-09 08:16 | Day surgery (SDC) | payer OTHER ==
[2025-05-09] MEDS ORDERED: Lactated Ringers 1,000 ML IV ONE (08:17)
[2025-05-09] MEDS ORDERED: Propofol 200 MG/20 ML SDV ONE ×2 (09:06→09:17)
[2025-05-09 14:01] VITALS: BP 118/81; PULSE 67
== END 2025-05-09 10:53 | disposition home or self-care (01) ==
LOC: JD.SDS 08:16
PROVIDERS: ATTEND Surgery
DX: Z12.11 Encounter for screening for malignant neoplasm of colon (principal); D12.0 Benign neoplasm of cecum; K31.89 Other diseases of stomach and duodenum; I10 Essential (primary) hypertension; K21.9 Gastro-esophageal reflux disease without esophagitis; F17.210 Nicotine dependence, cigarettes, uncomplicated; Z88.6 Allergy status to analgesic agent; Z88.8 Allergy status to other drugs, medicaments and biological substances; Z86.0101 Personal history of adenomatous and serrated colon polyps
CPT/HCPCS: 43239; 45380; C9777; J2003; J2704; J7120; 00813; 88305